=== PATIENT | female | born 1940 | race Caucasian/White ===

== ENCOUNTER 2021-05-07 12:09 | Emergency (ER) | payer MEDICARE, OTHER, SELFPAY ==
[2021-05-07 12:17] VITALS: BP 91/66; PULSE 75; RESP 18; TEMP 36.1; O2SAT 100
--- NOTE | 2021-05-07 14:53 | PC.NURSE ---
PT REPORTS EITHER THURSDAY OR THURSDAY THE COTTON OF A QTIP BECAME STUCK IN LEFT EAR
[2021-05-07 14:54] VITALS: BP 100/68; PULSE 68; RESP 16; O2SAT 98
--- NOTE | 2021-05-07 15:16 | ED.GENADULT ---
HPI - General Adult General Chief complaint: Skin/Abscess/Foreign Body Stated complaint: Foreign Body In Ear Time Seen by Provider: 05/07/21 14:58 Source: patient Mode of arrival: ambulatory Limitations: no limitations History of Present Illness HPI narrative: 81-year-old female presents with something stuck in her left ear x4 days. Patient states she was using a Q-tip prior to symptoms starting. Patient concerned Q-tip stuck in her left ear. No other complaints Onset (ago): day(s) (Four) Location: face Review of Systems Review of Systems: All systems reviewed & are unremarkable except as noted in HPI and below Constitutional: Constitutional: Reports no additional constitutional complaints Eyes: Eyes: Reports no additional eye complaints ENT: Comments: Left ear pain Cardiovascular: Cardiovascular: Reports no additional cardiovascular complaints Respiratory: Respiratory: Reports no additional respiratory complaints Gastrointestinal: Gastrointestinal: Reports no additional gastrointestinal complaints Genitourinary: Genitourinary: Reports no additional female genitourinary complaints Musculoskeletal: Musculoskeletal: Reports no additional musculoskeletal complaints Integumentary/Breasts: Skin/Breast: Reports system reviewed and no additional complaints, except as docu Neurologic: Reports system reviewed and no additional complaints, except as documented Psychiatric: Psychiatric: Reports no additional psychiatric complaints Endocrine: Endocrine: Reports no additional endocrine complaints Hematologic/Lymphatic: Hematologic/Lymphatic: Reports no additional hematologic/lymphatic complaints Allergic/Immunologic: Allergic/Immunologic: Reports no additional allergic/immunologic complaints Exam Narrative: General appearance: Well-developed, well-nourished Skin: Normal color Head: Normocephalic, nontraumatic Eyes: Clear conjunctiva ENT: Oropharynx normal, FB in left ear canal, nose normal Neck: Supple, nontender Chest and respiratory: Airway patent, no respiratory distress, no accessory muscle use Heart: Regular rate/rhythm Abdomen: Soft, nontender, no organomegaly, quiet bowel sounds Vascular: Normal peripheral pulses, normal capillary refill. Musculoskeletal: Normal range of motion, nontender back Neurologic: Alert and oriented ?3, [employer] is normal as tested, no gross motor deficit Course Course Emergency Course: Foreign body removed from left ear. No signs of infection Reevaluation(s) Reevaluation #1: Foreign body removed Date: 05/07/21 Time: 15:39 Vital Signs Vital signs: Vital Signs Temperature 36.1 C L 05/07/21 12:17 Pulse Rate 75 05/07/21 12:17 Respiratory Rate 18 05/07/21 12:17 Blood Pressure 91/66 L 05/07/21 12:17 Pulse Oximetry 100 05/07/21 12:17 Temperature 36.1 C L 05/07/21 12:17 Pulse Rate 68 05/07/21 14:54 Respiratory Rate 16 05/07/21 14:54 Blood Pressure 100/68 05/07/21 14:54 Pulse Oximetry 98 05/07/21 14:54 Medical Decision Making MDM Narrative Medical decision making narrative: Foreign body versus otitis Vital Signs Vital Signs: Vital Signs Temperature 36.1 C L 05/07/21 12:17 Pulse Rate 75 05/07/21 12:17 Respiratory Rate 18 05/07/21 12:17 Blood Pressure 91/66 L 05/07/21 12:17 Pulse Oximetry 100 05/07/21 12:17 Temperature 36.1 C L 05/07/21 12:17 Pulse Rate 68 05/07/21 14:54 Respiratory Rate 16 05/07/21 14:54 Blood Pressure 100/68 05/07/21 14:54 Pulse Oximetry 98 05/07/21 14:54 Critical Care Time Critical Care Time Critical Care Time: No Discharge Plan Discharge Clinical Impression: Foreign body in ear Patient Disposition: [facility]
--- NOTE | 2021-05-07 15:29 | PC.NURSE ---
LEFT EAR IRRIGATED WITH WARM WATER AND WHITE COTTON IRRIGATED FROM LEFT EAR CANAL. APPEARS TO BE THE SIZE OF COTTON ON QTIP. PT TOLEREATED PROCEDURE WITHOUT DIFFICULTY
--- NOTE | 2021-05-07 15:41 | ED.GENADULT ---
HPI - General Adult General Chief complaint: Skin/Abscess/Foreign Body Stated complaint: Foreign Body In Ear Time Seen by Provider: 05/07/21 14:58 Source: patient Mode of arrival: ambulatory Limitations: no limitations History of Present Illness HPI narrative: 81-year-old female presents with foreign body in left ear. Patient states symptoms started Thursday after using a Q-tip and concerned Q-tip was stuck in her left ear. Patient denies any other symptoms Location: face Review of Systems Review of Systems: All systems reviewed & are unremarkable except as noted in HPI and below Constitutional: Constitutional: Reports no additional constitutional complaints Eyes: Eyes: Reports no additional eye complaints ENT: Comments: Left ear pain Cardiovascular: Cardiovascular: Reports no additional cardiovascular complaints Respiratory: Respiratory: Reports no additional respiratory complaints Gastrointestinal: Gastrointestinal: Reports no additional gastrointestinal complaints Genitourinary: Genitourinary: Reports no additional female genitourinary complaints Musculoskeletal: Musculoskeletal: Reports no additional musculoskeletal complaints Integumentary/Breasts: Skin/Breast: Reports system reviewed and no additional complaints, except as docu Neurologic: Reports system reviewed and no additional complaints, except as documented Psychiatric: Psychiatric: Reports no additional psychiatric complaints Endocrine: Endocrine: Reports no additional endocrine complaints Hematologic/Lymphatic: Hematologic/Lymphatic: Reports no additional hematologic/lymphatic complaints Allergic/Immunologic: Allergic/Immunologic: Reports no additional allergic/immunologic complaints Exam Narrative: General appearance: Well-developed, well-nourished Skin: Normal color Head: Normocephalic, nontraumatic Eyes: Clear conjunctiva ENT: Oropharynx normal, foreign body left ear, nose normal Neck: Supple, nontender Chest and respiratory: Airway patent, no respiratory distress, no accessory muscle use Heart: Regular rate/rhythm Abdomen: Soft, nontender, no organomegaly, quiet bowel sounds Vascular: Normal peripheral pulses, normal capillary refill. Musculoskeletal: Normal range of motion, nontender back Neurologic: Alert and oriented ?3, [employer] is normal as tested, no gross motor deficit Course Course Emergency Course: Foreign body removed by staffing assistant no signs of infection Reevaluation(s) Reevaluation #1: Foreign body removed Date: 05/07/21 Time: 15:43 Vital Signs Vital signs: Vital Signs Temperature 36.1 C L 05/07/21 12:17 Pulse Rate 75 05/07/21 12:17 Respiratory Rate 18 05/07/21 12:17 Blood Pressure 91/66 L 05/07/21 12:17 Pulse Oximetry 100 05/07/21 12:17 Temperature 36.1 C L 05/07/21 12:17 Pulse Rate 68 05/07/21 14:54 Respiratory Rate 16 05/07/21 14:54 Blood Pressure 100/68 05/07/21 14:54 Pulse Oximetry 98 05/07/21 14:54 Medical Decision Making MDM Narrative Medical decision making narrative: Otitis versus foreign body Vital Signs Vital Signs: Vital Signs Temperature 36.1 C L 05/07/21 12:17 Pulse Rate 75 05/07/21 12:17 Respiratory Rate 18 05/07/21 12:17 Blood Pressure 91/66 L 05/07/21 12:17 Pulse Oximetry 100 05/07/21 12:17 Temperature 36.1 C L 05/07/21 12:17 Pulse Rate 68 05/07/21 14:54 Respiratory Rate 16 05/07/21 14:54 Blood Pressure 100/68 05/07/21 14:54 Pulse Oximetry 98 05/07/21 14:54 Discharge Plan Discharge Clinical Impression: Foreign body in ear Patient Disposition: Home, Self-Care Condition: Stable Instructions: Antibiotic Form, Ear Foreign Body (ED) Additional
[2021-05-07 15:49] VITALS: BP 108/68; PULSE 70; RESP 16; TEMP 36.4
== END 2021-05-07 16:01 | disposition home or self-care (01) ==
LOC: ANHED 16:01
PROVIDERS: Emergency Provider Nurse Practitioner Family
DX: T16.2XXA Foreign body in left ear, initial encounter (principal)
CPT/HCPCS: 99282

== ENCOUNTER 2023-03-15 09:23 | Emergency (ER) | payer MEDICARE, SELFPAY ==
--- NOTE | 2023-03-15 09:51 | ED.NAVMDI ---
HPI - Nausea/Vomiting/Diarrhea General Chief complaint: Nausea/Vomiting/Diarrhea Stated complaint: DIARRHEA/NOT EATING/STOMACH PAIN Time Seen by Provider: 03/15/23 09:51 Source: patient Mode of arrival: ambulatory Limitations: no limitations History of Present Illness HPI Narrative: 82-year-old female presents with complaint of diarrhea, nausea fatigue for 4 days. Reports having approximately 10 episodes of diarrhea a day. Is able to keep down fluids but has not had an appetite. Has not taking [id number] Imodium to treat diarrhea. Denies abdominal pain. No urinary symptoms. Afebrile. Patient here because she is concerned she has the flu. All systems reviewed and negative except as noted above. Related Data Home Medications Medication Instructions Recorded Confirmed alendronate 70 mg tablet mg PO 03/15/23 atorvastatin 20 mg tablet mg 03/15/23 latanoprost 0.005 % eye drops drp 03/15/23 Allergies Allergy/AdvReac Type Severity Reaction Status Date / Time No Known Allergies Allergy Verified 03/15/23 09:51 Review of Systems Review of Systems: CONSTITUTIONAL: Denies fever, chills, or sweats. Reports fatigue. EYES: Denies visual changes, redness, or discharge. ENT: Denies rhinorrhea, congestion, sore throat, or otalgia. CARDIOVASCULAR: Denies chest pain, palpitations, or edema. RESPIRATORY: Denies cough or dyspnea. GASTROINTESTINAL: Denies abdominal pain, vomiting. Reports nausea, diarrhea. GENITOURINARY: Denies dysuria or hematuria. SKIN: Denies rash or itching. MUSCULOSKELETAL: Denies back pain, joint pain, or myalgia. NEUROLOGIC: Denies headache, numbness, or weakness. PSYCHIATRIC: Denies anxiety or depression. All other systems reviewed are negative, except as documented in HPI. PMFSH Comments At time of signature, agree with nursing past medical, surgical, social and family history. There is no relevant family history pertinent to the presenting complaint. Exam Narrative: GENERAL: This is a well-nourished, well-developed patient, in no apparent distress. HEAD: normocephalic, atraumatic. EYES: PERRL. Sclera clear/white. Vision is grossly intact. EARS: External ears normal NOSE: External nose normal NECK: Neck supple, non-tender without lymphadenopathy, masses or thyromegaly. CARDIOVASCULAR: Regular rate and rhythm without murmurs, gallops, or rubs. RESPIRATORY: Clear to auscultation. Breath sounds equal bilaterally. No wheezes, rales, or rhonchi. GASTROINTESTINAL: Abdomen soft, nondistended. Bowel sounds are hyper active. Mild tenderness to left lower quadrant, no guarding. No hepato-splenomegaly, or palpable masses. No guarding. SKIN: warm, Dry, intact with no suspicious lesions or rash, good texture and turgor. NEURO: awake, alert, and oriented to person, place and time. There were no obvious focal neurologic abnormalities. EXTREMITIES: No joint tenderness, effusion, or edema noted. Course Course Level of Care: Express Care Visit Vital Signs Vital signs: Vital Signs Temperature 37.2 C 03/15/23 09:52 Pulse Rate 96 03/15/23 09:52 Respiratory Rate 20 03/15/23 09:52 Blood Pressure 123/93 H 03/15/23 09:52 Pulse Oximetry 99 03/15/23 09:52 Oxygen Delivery Room Air 03/15/23 09:52 Temperature 37.2 C 03/15/23 09:52 Pulse Rate 96 03/15/23 09:52 Respiratory Rate 20 03/15/23 09:52 Blood Pressure 123/93 H 03/15/23 09:52 Pulse Oximetry 99 03/15/23 09:52 Oxygen Delivery Room Air 03/15/23 09:52 Reviewed MDM - Nausea/Vomiting/Diarrhea MDM Narrative Medical decision making narrative: Patient well-appearing. No pain distress. Negative influenza test. Patient has no abdominal pain at rest but does have some mild left lower quadrant tenderness on palpation. Has history of diverticulosis but says never had diverticulitis. Will treat with Augmentin as precaution for diverticulitis. Will give Imodium for diarrhea. Recommend increase and fluids
[2023-03-15 09:52] VITALS: BP 123/93; PULSE 96; RESP 20; TEMP 37.2; O2SAT 99
== END 2023-03-15 10:11 | disposition home or self-care (01) ==
PROVIDERS: Emergency Provider Nurse Practitioner Family; PCP Internal Medicine
DX: R19.7 Diarrhea, unspecified (principal); Z20.822 Contact with and (suspected) exposure to COVID-19
CPT/HCPCS: 87426; 87804; 99213; C9803; G0463